=== PATIENT | male | born 1950 | race Caucasian/White ===

== ENCOUNTER 2019-01-18 15:57 | Emergency (ER) | payer MEDICARE ==
[~2019-01-18] VITALS: Ht 180.3 cm; Wt 73.9 kg
[2019-01-18] MEDS: IPRATROPIUM BROMIDE 0.02% 2.5 ML NEB NEB SCH (00:40)
[2019-01-18] MEDS: ALBUTEROL SULF 0.083% NEB SOLN 3 ML NEB NEB SCH (00:40)
[~2019-01-18 15:57] MED LIST: ASPIRIN81 M3; WELLBUTRIN100 M1; Z.0.CRESTOR10 MG PO; Z.0.LISINOPRIL10 MG PO; Z.0.LOVAZA1 GM PO
[2019-01-18] MEDS ORDERED: SODIUM CHLORIDE 0.9% 1000ML 1,000 ML IV STA (16:17)
[2019-01-18 16:55] LABS: BILIRUBIN,URINE SMALL (NEGATIVE); CLARITY,URINE SL CLOUDY (CLEAR); COLOR,URINE YELLOW (YELLOW); KETONES,URINE TRACE (NEGATIVE); LEUKOCYTE ESTERASE ,URINE NEGATIVE (NEGATIVE); NITRITE,URINE NEGATIVE (NEGATIVE); PROTEIN,URINE DIPSTICK 1+ (NEGATIVE); URINE UROBILINOGEN 1 mg/dL (0.2 - 1)
[2019-01-18 16:56] LABS: BASOPHILS % 0.3 % (0.0-1.0); EOSINOPHILS # (AUTO) 0.1 (0.0-0.4); EOSINOPHILS % 1.1 % (0.0-6.0); HEMATOCRIT 41.7 % (38.2-49.6); HEMOGLOBIN 13.8 g/dL (14.0-18.0); LYMPHOCYTES # (AUTO) 1.1 (1.0-3.2); LYMPHOCYTES % 11.6 % (18.0-39.1); MEAN CORPUSCULAR HEMOGLOBIN 29.7 pg (28-32); MEAN CORPUSCULAR HGB CONC 33.1 g/dL (31-35); MEAN CORPUSCULAR VOLUME 89.7 fL (81-99); MONOCYTES % 10.1 % (4.4-11.3); NEUTROPHILS # (AUTO) 7.4 (2.1-6.9); NEUTROPHILS % 76.4 % (38.7-80.0); PLATELET COUNT 366 x10e3/uL (140-360); RED BLOOD COUNT 4.65 x10e6/uL (4.3-5.7); RED CELL DISTRIBUTION WIDTH 12.3 % (11.7-14.4)
[2019-01-18 17:07] LABS: BACTERIA,URINE FEW /HPF; MUCUS,URINE MODERATE (RARE); WBC,URINE (MAN) 0-5 /HPF (0-5)
--- NOTE | 2019-01-18 17:08 | Diagnostic Imaging Report ---
EXAMINATION: CHEST SINGLE (PORTABLE) INDICATION: Cough, altered mental status, COPD COMPARISON: Chest radiograph of 08/29/2009 FINDINGS: LINES/TUBES:Partially visualized neurostimulator leads projecting over the midline thorax. LUNGS:The lungs are well-inflated. Patchy opacity at the left lung base. PLEURA:No pleural effusion or pneumothorax. MEDIASTINUM:The cardiomediastinal silhouette appears normal in size and shape. BONES/SOFT TISSUES:No acute osseous injury. ABDOMEN:No free air under the diaphragm. IMPRESSION: Patchy opacity at the left lung base may represent aspiration or pneumonia in the proper clinical setting. Signed by: Lyudmila Hutchison MD on 01/18/2019 5:05 PM
[2019-01-18 17:14] LABS: ALBUMIN 3.7 g/dL (3.5-5.0); ALBUMIN/GLOBULIN RATIO 0.9 (0.8-2.0); ANION GAP 14.9 mmol/L (8-16); CALCIUM 9.9 mg/dL (8.4-10.2); CREATININE, SERUM 1.23 mg/dL (0.72-1.25); MAGNESIUM 2.3 MG/DL (1.3-2.1); POTASSIUM 3.9 mmol/L (3.5-5.1)
--- NOTE | 2019-01-18 17:18 | Diagnostic Imaging Report ---
History:Left third nerve palsy Comparison studies: Brain MRI on 08/30/2009. Technique: Axial images were obtained from the skull base to the vertex. Coronal and sagittal images reconstructed from the axial data. Dose modulation, iterative reconstruction, and/or weight based adjustment of the mA/kV was utilized to reduce the radiation dose to as low as reasonably achievable. Intravenous contrast: None Findings: Scalp/skull: No abnormalities. Extra-axial spaces: No masses. No fluid collections. Brain sulci: Moderately prominent. Ventricles: Moderate compensatory dilatation. No hydrocephalus. Parenchyma: Subtle hypodensities in the supratentorial white matter are small vessel ischemic changes. Cortical encephalomalacic changes in the right inferior occipital lobe probably result of a nonspecific insult. Old lacunar insult are centered in the head of the right caudate and in the left posterior putamen. No masses, hemorrhage, acute or chronic cortical vascular insults. Sellar/suprasellar region: No abnormalities. Craniocervical junction: Patent foramen magnum. No Chiari one malformation. Incidental findings: Atherosclerotic calcifications in the carotid siphons and the left vertebral artery.. Impression: No acute abnormalities. Chronic findings: 1. Moderate generalized volume loss. 2. Mild supratentorial white matter small vessel ischemic changes. 3. Nonspecific cortical insult (right inferior occipital lobe) and focal lacunar insults as described. Signed by: Dr. Abdirizak Galarza M.D. on 01/18/2019 5:15 PM
[2019-01-18 17:21] LABS: CREATINE KINASE MB 1.1 ng/mL (0-5.0)
[2019-01-18 18:05] LABS: INR 0.93
[2019-01-18 18:06] LABS: PARTIAL THROMBOPLASTIN TIME 36.4 seconds (23.8-35.5)
[2019-01-18] MEDS ORDERED: CEFTRIAXONE SOD 1 GM/NS 50 ML 50 ML IV SCH (18:30)
[2019-01-18] MEDS ORDERED: ASPIRIN 81 MG CHEW TAB PO ONE (19:00)
[2019-01-18] MEDS ORDERED: ACETAMINOPHEN 325 MG TAB PO PRN (19:00)
[2019-01-18] MEDS ORDERED: NICOTINE 21 MG/EA PATCH TOP SCH (19:00)
--- OUTSIDE RECORDS SUMMARY | 2019-01-18 19:05 | XMS REPORT ---
Author Author [facility] Address Unknown Phone Unavailable Care Team Providers Care Returner Name Role Phone Jackson ZUNIGA Unavailable Unavailable Problems This patient has no known problems. Allergies, Adverse Reactions, Alerts This patient has no known allergies or adverse reactions. Medications This patient has no known medications. Results Test Description Test Time Test Comments Text Results Atomic Results Result Comments CT BRAIN WO 2019-01-18 17:11:00 [place] [address] Patient Name: DOMINGA MONTANO MR #: [id number] : 1950 Age/Sex: 68/M Req #: [id number] [facility] Physician: Ordered by: AMANDA ZUNIGA MD Report #: [id number] Location: ER Room/Bed: Procedure: [id number] CT/CT BRAIN WO Exam Date: 01/18/19 Exam Time: 1640 REPORT STATUS: Signed History:Left third nerve palsy Comparison studies: Brain MRI on 08/30/2009. Technique: Axial images were obtained from the skull base to the vertex. Coronal and sagittal images reconstructed from the axial data. Dose modulation, iterative reconstruction, and/or weight based adjustment of the mA/kV was utilized to reduce the radiation dose to as low as reasonably achievable. Intravenous contrast: None Findings: Scalp/skull: No abnormalities. Extra-axial spaces: No masses. No fluid collections. Brain sulci: Moderately prominent. Ventricles: Moderate compensatory dilatation. No hydrocephalus. Parenchyma: Subtle hypodensities in the supratentorial white matter are small vessel ischemic changes. Cortical encephalomalacic changes in the right inferior occipital lobe probably result of a nonspecific insult. Old lacunar insult are centered in the head of the right caudate and in the left posterior putamen. No masses, hemorrhage, acute or chronic cortical vascular insults. Sellar/suprasellar region: No abnormalities. Craniocervical junction: Patent foramen magnum. No Chiari one malformation. Incidental findings: Atherosclerotic calcifications in the carotid siphons and the left vertebral artery.. Impression: No acute abnormalities. Chronic findings: 1. Moderate generalized volume loss. 2. Mild supratentorial white matter small vessel ischemic changes. 3. Nonspecific cortical insult (right inferior occipital lobe) and focal lacunar insults as described. Signed by: Dr. Abdirizak Galarza M.D. on 01/18/2019 5:15 PM Dictated By: ABDIRIZAK DAMIAN MD, MD 14 Transcribed By: KERRY on 01/18/191714 COPY TO: AMANDA ZUNIGA MD CHEST SINGLE (PORTABLE) 2019-01-18 17:02:00 [place] [address] Patient Name: DOMINGA MONTANO MR #: [id number] : 1950 Age/Sex: 68/M Req #: [id number] Adm Physician: Ordered by: AMANDA ZUNIGA MD Report #: [id number] Location: ER Room/Bed: Procedure: [id number] DX/CHEST SINGLE (PORTABLE) Exam Date: 01/18/19 Exam Time: 1640 REPORT STATUS: Signed EXAMINATION: CHEST SINGLE (PORTABLE) INDICA TION: Cough, altered mental status, COPD COMPARISON: Chest radiograph of 08/29/2009 FINDINGS: LINES/TUBES:Partially visualized neurostimulator leads projecting over the midline thorax. LUNGS:The lungs are well-inflated. Patchy opacity at the left lung base. PLEURA:No pleural effusion or pneumothorax. MEDIASTINUM:The cardiomediastinal silhouette appears normal in size and shape. BONES/SOFT TISSUES:No acute osseous injury. ABDOMEN:No free air under the diaphragm. IMPRESSION: Patchy opacity at the left lung base may represent aspiration or pneumonia in the proper clinical setting. Signed by: Gus Hutchison MD on 01/18/2019 5:05 PM Dictated By: GUS HUTCHISON MD 170 Transcribed By: KERRY on 01/18/191704 COPY TO: AMANDA ZUNIGA MD
[2019-01-18] MEDS: SODIUM CHLORIDE 0.9% 1000ML 1,000 ML IV SCH (21:35)
[2019-01-18] MEDS: AZITHROMYCIN 500MG/NS 250 ML 250 ML IV SCH (22:26)
[2019-01-19 00:37] LABS: CREATINE KINASE MB 0.8 ng/mL (0-5.0)
[2019-01-19] MEDS: ALBUTEROL SULF 0.083% NEB SOLN 3 ML NEB NEB SCH ×4 (03:53→15:00)
[2019-01-19] MEDS: IPRATROPIUM BROMIDE 0.02% 2.5 ML NEB NEB SCH ×4 (03:53→15:00)
[2019-01-19 06:04] LABS: BASOPHILS % 0.2 % (0.0-1.0); EOSINOPHILS # (AUTO) 0.1 (0.0-0.4); EOSINOPHILS % 1.5 % (0.0-6.0); HEMATOCRIT 32.9 % (38.2-49.6); HEMOGLOBIN 11.1 g/dL (14.0-18.0); LYMPHOCYTES % 11.6 % (18.0-39.1); MEAN CORPUSCULAR HEMOGLOBIN 30.1 pg (28-32); MEAN CORPUSCULAR HGB CONC 33.7 g/dL (31-35); MEAN CORPUSCULAR VOLUME 89.2 fL (81-99); MONOCYTES # (AUTO) 0.9 (0.2-0.8); MONOCYTES % 9.6 % (4.4-11.3); NEUTROPHILS # (AUTO) 6.8 (2.1-6.9); NEUTROPHILS % 76.6 % (38.7-80.0); PLATELET COUNT 281 x10e3/uL (140-360); RED BLOOD COUNT 3.69 x10e6/uL (4.3-5.7); RED CELL DISTRIBUTION WIDTH 12.2 % (11.7-14.4)
[2019-01-19] MEDS: SODIUM CHLORIDE 0.9% 1000ML 1,000 ML IV SCH (06:07)
[2019-01-19 06:24] LABS: ALANINE AMINOTRANSFERASE 14 IU/L (0-55); ALBUMIN 2.6 g/dL (3.5-5.0); ALBUMIN/GLOBULIN RATIO 0.9 (0.8-2.0); ALKALINE PHOSPHATASE 81 IU/L (40-150); ANION GAP 13.5 mmol/L (8-16); BLOOD UREA NITROGEN 12 mg/dL (7-26); BUN/CREATININE RATIO 14 (6-25); CARBON DIOXIDE 22 mmol/L (22-29); CHLORIDE 111 mmol/L (98-107); CREATININE, SERUM 0.87 mg/dL (0.72-1.25); EST GLOMERULAR FILTRATION RATE > 60 ML/MIN (60-); GLUCOSE 96 mg/dL (74-118); POTASSIUM 3.5 mmol/L (3.5-5.1); SODIUM 143 mmol/L (136-145)
[2019-01-19 06:43] LABS: CREATINE KINASE MB 0.9 ng/mL (0-5.0)
[2019-01-19] MEDS: AZITHROMYCIN 500MG/NS 250 ML 250 ML IV SCH (08:38)
[2019-01-19] MEDS ORDERED: ASPIRIN 81 MG ENTERIC COATED PO SCH (09:00)
[2019-01-19] MEDS ORDERED: HYDRALAZINE HCL 20 MG/ML VIAL IV PRN (11:15)
[2019-01-19] MEDS ORDERED: PLAVIX75 MG PO (11:50)
[2019-01-19] MEDS ORDERED: ATORVASTATIN CA20 MG PO (11:51)
[2019-01-19] MEDS ORDERED: AMLODIPINE BESYLATE 5 MG TAB PO ONE (12:00)
[2019-01-19 14:05] VITALS: BP 99/63
[2019-01-19 14:05] LABS: CREATINE KINASE MB 0.9 ng/mL (0-5.0)
--- NOTE | 2019-01-19 16:08 | Diagnostic Imaging Report ---
History: Confusion, double vision Comparison studies: CT head 01/18/2019, MRI brain 08/30/2009 Technique: Sagittal T2; axial DWI, FLAIR, MPGR, T1, Coronal FLAIR. Intravenous contrast: None Findings: Scalp: Normal in signal . No masses . Bone marrow: Normal in signal intensity. Extra-axial: No masses, no fluid collections. Brain sulci: Moderately prominent. Ventricles: Normal in size . No hydrocephalus . Parenchyma: Subcortical T2/flair white matter hyperintensities of the right occipital lobe with associated volume loss. Scattered T2/flair hyperintensities of the periventricular and deep white matter, nonspecific and most commonly seen with mild chronic microvascular ischemic changes. Chronic lacunar infarct at left posterior putamen. No masses, hemorrhage or acute vascular insults. Suprasellar region: No abnormalities. Craniocervical junction: No abnormalities. Patent foramen magnum. No Chiari one malformation. Vessels: Normal flow-voids in the arteries and sinuses. IMPRESSION: 1. No acute abnormality. 2. Mild chronic microvascular ischemic changes of the white matter. Diffuse volume loss. 3. Encephalomalacia of the right occipital lobe Signed by: DR Eliseo Landeros M.D. on 01/19/2019 4:05 PM
--- NOTE | 2019-01-19 18:05 | History and Physical ---
CHIEF COMPLAINT: Multiple falls, confusion, and altered mental status. HISTORY OF PRESENT ILLNESS: A 68-year-old male patient, history of previous stroke with right hemiparesis, nonambulatory, bilateral knee surgery, he is a chronic smoker, emphysema, and noncompliant with the office visit, was seen by Dr. Donovan, PCP for multiple fall and change in mental status, uncontrolled blood pressure with a blood pressure 160/134. The patient sent to the emergency room. CT head, no acute disease noted in the ER. EKG was normal. CBC and CMP normal. The patient also had infiltrative changes in the lung, so the patient admitted for pneumonia. The patient had a breakfast without any aspiration. He had a patchy opacity left lung base. PAST MEDICAL HISTORY: Hypertension, stroke, COPD, nicotine dependency, and arthritis. PAST SURGICAL HISTORY: Bilateral knee surgery. Includes hernia repair and hip replacement. PERSONAL HISTORY: Chronic smoker. PHYSICAL EXAMINATION: VITAL SIGNS: Blood pressure 160/134 and pulse of 78. HEENT: The patient has facial droop on the right side. LUNGS: Diminished into the left base. CVS: Normal. ABDOMEN: Soft. Bowel sounds normal. EXTREMITIES: Lower extremities, no edema. Surgical scar both knee. DRIER TAKE OFF TENDER: Awake and alert. Answers to simple questions. Cognitively impaired. Follows simple commands. Weak on the right upper and lower extremity. DIAGNOSTIC DATA: EKG normal. ASSESSMENT: Left lower lobe pneumonia, chronic obstructive pulmonary disease, altered mental status, possible from the infection. PLAN: We will keep on IV antibiotics. Rehab evaluation. Control blood pressure. Neurology consultation. MD SHERRIE Campbell/CHEYENNE /[id number]
--- NOTE | 2019-01-19 18:50 | Consultation ---
DATE OF CONSULTATION: 01/19/2019 Pulmonary Consultation REASON FOR CONSULT: Smoker, shortness of breath. HISTORY OF PRESENT ILLNESS: Mr. Espana is a 68-year-old male, came to the emergency room with complaints of mental status change and confusion, was sent by the primary care physician, Dr. Donovan. The patient has history of chronic dementia. He was at [facility] 6 months ago for acute stroke rehab and then went home. He was confused and altered, so brought him to his primary care physician and he was sent here to the hospital. He denies any complaints of chest pain, nausea, or vomiting. He has chronic shortness of breath. He does not use oxygen at home, still smokes, has been a smoker for 50 years, 1 to 2 packs per day. REVIEW OF SYSTEMS: GENERAL: Denies any fever or chills. HEAD: Denies any head trauma. ENT: Denies any earaches. CVS: Denies any chest pain. RESPIRATORY: Shortness of breath. GI: Denies any nausea or vomiting. The rest of the review of systems are negative except as in HPI. PAST MEDICAL HISTORY: Hypertension, dementia, hyperlipidemia, and acute CVA. PAST SURGICAL HISTORY: Failed hip surgery, however, he is able to walk and knee replacement surgery. PHYSICAL EXAMINATION: VITAL SIGNS: Temperature 98.5, pulse of 64, blood pressure 102/75, and respiratory rate of 18. HEENT: Head is atraumatic and normocephalic. NECK: Supple. CHEST: Crackles on the left base. HEART: S1 and S2 audible. ABDOMEN: Soft. EXTREMITIES: No pedal edema. NEUROLOGIC: Awake and alert. LABORATORY DATA: Reviewed. Chest x-ray films reviewed, possible left lower lobe infiltrate. ASSESSMENT/PLAN: Mr. Espana is a 68-year-old male with left lower lobe pneumonia, high likelihood of having chronic obstructive pulmonary disease. The patient has almost 55 to 60 pack year smoking history. PLAN: Agree with Rocephin and azithromycin. Also, continue the nebulizer treatment. Oxygen as needed. Thank you for this consult. MD LEROY Fernando/CHEYENNE /[id number]
[2019-01-20] MEDS ORDERED: LOSARTAN POTASSIUM 100 MG TAB PO SCH (09:00)
--- NOTE | 2019-01-22 07:10 | Discharge Summary ---
HOSPITAL COURSE: A 68-year-old male patient with history of previous stroke, admitted with a change in mental status. The patient also is a chronic smoker. He was admitted. Chest x-ray was positive for left lower lobe pneumonia. The patient was treated with antibiotic. Also, he was declining lately. He has weakness on the right side. The patient was transferred to rehab center for aggressive rehabilitation and antibiotic will be continued. He was seen by the respiratory coordinator. The patient had an MRI, showed no acute abnormality. Mild chronic microvascular ischemic changes noted. Encephalomalacia in the right occipital lobe. DISCHARGE DIAGNOSES: Change in mental status, pneumonia, chronic obstructive pulmonary disease, previous stroke with functional decline. DISCHARGE MEDICATIONS: Reconciled. MD SHERRIE Campbell/CHEYENNE /[id number]
== END 2019-01-19 14:09 ==
LOC: ER 15:57 → UNDOADMIN 19:02 → ERHOLD 19:02
DX: J44.0 Chronic obstructive pulmonary disease with (acute) lower respiratory infection (principal); J15.9 Unspecified bacterial pneumonia; H49.02 Third [oculomotor] nerve palsy, left eye; I10 Essential (primary) hypertension; E78.00 Pure hypercholesterolemia, unspecified; E78.5 Hyperlipidemia, unspecified; F17.210 Nicotine dependence, cigarettes, uncomplicated; G93.89 Other specified disorders of brain; I69.398 Other sequelae of cerebral infarction
CPT/HCPCS: 36415; 70450; 70551; 71045; 80053 ×2; 81001; 82140; 82550 ×2; 82553 ×2; 83605; 83735; 84484 ×2; 85025 ×2; 85610; 85730; 87040; 87071; 87086; 87205; 93005; 93306; 94640 ×2; 99285; J0456 ×2; J0696; J7030